=== PATIENT | female | born 1990 | race Caucasian/White ===

== ENCOUNTER 2021-06-21 20:44 | Emergency (ER) | payer OTHER ==
[~2021-06-21] VITALS: Ht 154.9 cm; Wt 74.3 kg
[2021-06-21] MEDS ORDERED: ACETAMINOPHEN 325MG TABLET PO STA (21:22)
[2021-06-21] MEDS ORDERED: IBUPROFEN 600MG TABLET PO STA (21:22)
[2021-06-21] MEDS ORDERED: METHOCARBAMOL 750MG TABLET PO SCH (22:45)
[2021-06-21 23:26] VITALS: BP 117/79
[2021-06-22 00:02] LABS: HCG SCREEN NEGATIVE
== END 2021-06-22 00:32 | disposition home or self-care (01) ==
LOC: ER 20:44
DX: M54.2 Cervicalgia (principal); M54.6 Pain in thoracic spine; M79.601 Pain in right arm; M79.604 Pain in right leg; G89.11 Acute pain due to trauma; V49.49XA Driver injured in collision with other motor vehicles in traffic accident, initial encounter; Y93.89 Activity, other specified; Y92.488 Other paved roadways as the place of occurrence of the external cause
CPT/HCPCS: 81025; 84703; 99284